=== PATIENT | female | born 1970 | race Caucasian/White ===

== ENCOUNTER 2024-09-11 06:00 | Day surgery (SDC) | payer OTHER ==
[~2024-09-11 06:00] MED LIST: LEVAQUIN500 MG PO; SEPTRA DS TABLE1 TAB
[2024-09-11] MEDS ORDERED: DIPHENHYDRAMINE HCL 50 MG/ML VIAL 1ML IV ONE ×2 (09:00)
[2024-09-11] MEDS ORDERED: fentaNYL CITRATE 50 MCG/ML AMPUL IV PUSH ONE (09:00)
[2024-09-11] MEDS ORDERED: MIDAZOLAM HCL 2 MG/2 ML VIAL IV ONE (09:00)
== END 2024-09-11 10:35 | disposition home or self-care (01) ==
LOC: AMB-ENDOS 06:00
PROVIDERS: ATTEND Colon & Rectal Surgery
DX: K62.1 Rectal polyp (principal); K62.5 Hemorrhage of anus and rectum; K57.30 Diverticulosis of large intestine without perforation or abscess without bleeding; Z88.0 Allergy status to penicillin

== ENCOUNTER 2024-09-11 12:11 | Outpatient (CLI) | payer OTHER | END 2024-09-11 12:26 | disposition home or self-care (01) | LOC: TOM 12:11 | DX: Z12.11 Encounter for screening for malignant neoplasm of colon (principal) ==